=== PATIENT | male | born 1950 | race Caucasian/White ===

== ENCOUNTER 2019-11-18 07:03 | Day surgery (SDC) | payer MEDICARE, OTHER ==
[~2019-11-18 07:03] MED LIST: Midazolam 1 MG/ML 2 ML SDV ONE; Propofol 200 MG/20 ML SDV ONE; fentaNYL 100 MCG/2 ML SDV ONE
[2019-11-18] MEDS ORDERED: Lactated Ringers 1,000 ML IV SCH (07:15)
--- NOTE | 2019-11-18 18:12 | OR ---
DATE OF PROCEDURE: 11/18/2019 SURGEON: Jean Connelly MD PREOPERATIVE DIAGNOSIS: Indications for screening colonoscopy. POSTOPERATIVE DIAGNOSES: Normal colonoscopy other than for minimal left colonic diverticulosis. OPERATIVE PROCEDURE: Flexible colonoscopy. ANESTHESIA: IV sedation. INDICATION FOR PROCEDURE: This is a 69-year-old male presenting for screening colonoscopy. He has no personal or family history of colon neoplasia. Plan is to proceed with colonoscopy with biopsies and/or polypectomy as indicated. Potential risks of the procedure including bleeding and perforation were discussed, and the patient wishes to proceed. DETAILS OF PROCEDURE: The patient was taken to the operating room and placed in a left lateral decubitus position. IV sedation was administered, after which the initial digital rectal exam was performed, which was unremarkable. Colonoscope was passed into the rectum with retroflexion revealing uncomplicated hemorrhoidal columns. Scope was eventually passed to the level of the cecum. The prep was good with only a small amount of liquid stool present. To that level, there was some uncomplicated relatively minimal diverticulosis in the left colon. Apart from that, there were no areas of colitis and no polyps or other signs of neoplasia. The scope was then withdrawn the above findings were reconfirmed, and the procedure then concluded. Recommendation would be to repeat the colonoscopy in 10 years. Jean Connelly MD /[id number]
== END 2019-11-18 09:15 | disposition home or self-care (01) ==
LOC: JP.SDS 07:03
PROVIDERS: ATTEND Surgery
DX: Z12.11 Encounter for screening for malignant neoplasm of colon (principal); K57.30 Diverticulosis of large intestine without perforation or abscess without bleeding; K64.9 Unspecified hemorrhoids; G47.33 Obstructive sleep apnea (adult) (pediatric); E78.5 Hyperlipidemia, unspecified; E11.9 Type 2 diabetes mellitus without complications; E66.9 Obesity, unspecified; Z68.29 Body mass index [BMI] 29.0-29.9, adult
CPT/HCPCS: G0121; J2250; J2704; J3010; J7120

== ENCOUNTER 2021-10-15 19:54 | Emergency (ER) | payer MEDICARE, OTHER ==
[2021-10-15] MEDS ORDERED: Clindamycin HCl 150 MG Cap PO ONE (20:41)
[2021-10-15] MEDS ORDERED: Ibuprofen 400 MG Tab PO ONE (20:42)
[2021-10-15] MEDS ORDERED: diphenhydrAMINE 25 MG Cap PO ONE (20:42)
== END 2021-10-15 21:39 | disposition home or self-care (01) ==
LOC: JP.ED 19:54
DX: L03.221 Cellulitis of neck (principal); T36.8X5A Adverse effect of other systemic antibiotics, initial encounter; M25.511 Pain in right shoulder; E78.00 Pure hypercholesterolemia, unspecified; E11.9 Type 2 diabetes mellitus without complications; Z79.82 Long term (current) use of aspirin; Z79.899 Other long term (current) drug therapy; Z79.84 Long term (current) use of oral hypoglycemic drugs
CPT/HCPCS: 99283; A9270